=== PATIENT | female | born 1940 | race Caucasian/White ===

== ENCOUNTER 2017-01-29 21:20 | Inpatient (IN) | payer MEDICARE, OTHER ==
--- NOTE | ~2017-01-29 | HP ---
History And Physical [place] [id number] [facility] [place]. [address] NAME: LUIS HILL : 38 STATUS : ADM Alicia PAT#: [id number] AGE: 76 ADM/REG DATE : 01/29/17 MR#: [id number] REPORT SERV DATE: 01/30/17 DICTATED BY: DATE: REPORT STATUS : Draft TRANSCRIBED BY: MODL DATE: 01/30/17 DATE OF ADMISSION: 01/29/2017 The patient is [facility]. CHIEF COMPLAINT: Fall on Tuesday. HISTORY OF PRESENT ILLNESS: Ms. Hill is a 76-year-old white female who has past history of a stroke, but reportedly is fairly independent of activities of daily living, and fairly stable with ambulation. She fell on Tuesday morning. She is unable to provide a very clear history, but tells me that she was attempting to close the door because she recently heard of a stranger in their community and was fearful that he was going to come to get her at their house. In the process, she landed on her back and outstretched left hand, with some bruising. She reportedly was alright until Tuesday when she began to complain of some left-sided chest pain and left shoulder pain. The ER physician said that patient's family said she was also potentially complaining of shortness of breath at that time, although the patient herself denies. Her family has left the emergency department and is not available by phone. The patient's only complaint is of sinus congestion over the past several weeks, relieved with an antihistamine. She denies any cough or phlegm production. She denies any fever. She has not had any nausea, vomiting, or abdominal pain. She denies any changes in bowel habits or urinary habits. In the emergency department, CT chest, abdomen, and pelvis has been done with no acute abnormalities except for age indeterminate 10% to 15% possible insufficiency fracture of the superior T1 vertebra and prior changes of a CABG. Labs revealed leukocytosis with a white count of 22.2, but negative procalcitonin and negative lactic acid level. Urinalysis is negative and creatinine is 2.58 on last known baseline of 1.8 in 2010. Troponin is negative. EKG shows no ST or T-wave changes to suggest cardiac ischemia. The patient's only complaint at present is being tired. REVIEW OF SYSTEMS: Full 14-point review of systems is negative except as dictated in the history of present illness. PAST MEDICAL HISTORY: Includes: 1. Chronic kidney disease stage 3 with last known baseline creatinine 1.8. The patient sees a manager pe in [place] but is unable to recall the name. 2. History of coronary artery disease, status post 4-vessel CABG and aortic valve [place] [address] Chance. 3. Hypertension. 4. Hyperglycemia with past documented history of diabetes, not presently on any medications for such. 5. Hypothyroidism after surgical thyroidectomy for a substernal goiter in 2003 by History And Physical [address] [address] NAME: LUIS HILL : 38 STATUS : ADM Alicia PAT#: [id number] AGE: 76 ADM/REG DATE : 01/29/17 MR#: [id number] REPORT SERV DATE: 01/30/17 DICTATED BY: DATE: REPORT STATUS : Draft TRANSCRIBED BY: MODL DATE: 01/30/17 Ronnie Cadet. 6. Hiatal hernia. 7. Hyperlipidemia. 8. History of diastolic dysfunction - preserved ejection fraction by echocardiogram 11/25/2016. 9. History of COPD. 10.Prior history of CVA - details unknown. PAST SURGICAL HISTORY: Includes goiter, status post thyroidectomy in 2003 and CABG with aortic valve replacement in 2006. ALLERGIES: CODEINE WITH UNKNOWN REACTION. MEDICATIONS: Include: 1. Amlodipine/valsartan 5/320 mg p.o. daily. 2. Aspirin 81 mg p.o. daily. 3. Catapres 0.2 mg p.o. daily. 4. Lasix 20 mg p.o. at bedtime and 40 mg p.o. daily. 5. Levothyroxine 100 mcg p.o. daily. 6. Lopressor 100 mg p.o. twice a day. 7. Protonix 40 mg p.o. at bedtime. 8. MiraLAX one packet p.o. daily. 9. Pravastatin 20 mg p.o. daily. SOCIAL HISTORY: The patient is and lives with her . She spent much of our interview talking about stress related to having her [id number] recently move into their home. She is accusing him of stealing and creating other havoc in the home. She denies any history of tobacco, alcohol, or illicit substances. She used to work in [employer], but has been retired for quite sometime. FAMILY HISTORY: Reviewed and is noncontributory to this chief complaint. Primary care provider is Dr. Barr. PHYSICAL EXAMINATION: VITAL SIGNS: Blood pressure 145/77, pulse 84, respirations 21, oxygen saturation is 97% on 2 L nasal cannula, and temperature is 98.6. GENERAL: This is a frail-appearing white female, in no acute distress. Alert and oriented in two dimensions - knows who she is and where she is, is off on the date and year. She is also hard of hearing. HEENT: Normocephalic, atraumatic. Pupils are equally round and reactive to light. No scleral icterus or conjunctival pallor. No sinus tenderness to palpation or nasal drainage. Oropharynx is moist and pink with no posterior pharyngeal erythema or exudate. NECK: Supple. No jugular venous distention. No lymphadenopathy. No bruits. No thyromegaly. CARDIOVASCULAR: Regular rate and rhythm with no murmurs, rubs, or gallops. LUNGS: Clear to auscultation bilaterally with no wheezes, crackles, nor rhonchi. History And Physical [address] [address] NAME: LUIS HILL : 38 STATUS : ADM Alicia PAT#: [id number] AGE: 76 ADM/REG DATE : 01/29/17 MR#: [id number] REPORT SERV DATE: 01/30/17 DICTATED BY: DATE: REPORT STATUS : Draft TRANSCRIBED BY: MODYumiko DATE: 01/30/17 ABDOMEN: Soft, nontender, and nondistended with normoactive bowel sounds in four quadrants. No hepatosplenomegaly. EXTREMITIES: No cyanosis, clubbing, or edema. There is bruising of the left upper extremity, but patient has full range of motion of bilateral lower extremities and upper extremities. She is also observed to be ambulatory, slightly weak, but able to bear weight. SKIN: Normal skin turgor with no rash or breakdown aside from the bruising on the left hand as noted. NEUROLOGIC: Cranial nerves 2 through 12 were tested and are intact. Deep tendon reflexes 2+ bilateral brachioradialis and patellar tendons. Sensation intact to fine touch and temperature in all four limbs. Strength 5/5 in bilateral upper and lower extremities. LABORATORY DATA: White blood cell count 22.2, hemoglobin 12.8, hematocrit 39.1, and platelets 268. INR 1.2. BNP 170. Urinalysis is negative except for 9 hyaline casts. Lactate is 1.9. Procalcitonin 0.31. Sodium 142, potassium 4.8, chloride 106, bicarb 27, BUN 46, creatinine 2.58 on last known baseline of 1.8, glucose 182, calcium 9.9, magnesium 2.4, and troponin negative at 0.02. IMAGIN. Portable chest x-ray, 01/29/2017, showing small left effusion and minimal left basilar atelectasis by the radiologist read. 2. Chest CT without contrast, 01/29/2017, unremarkable CT chest with no thoracic adenopathy or active pulmonary disease. No effusion. Indeterminate age mild 10% to 15% possible insufficiency fracture at the superior T1 vertebra with stable mild-to- moderate thoracic kyphosis and prior CABG. 3. CT abdomen and pelvis, 01/29/2017, no acute abdominal or pelvic pathology. No solid organ contusion or laceration. Status post cholecystectomy. Moderate hiatal hernia. Diverticulosis but no diverticulitis. 4. EKG, no acute ischemic changes. IMPRESSION: 1. Leukocytosis. 2. Acute kidney injury with prior history of chronic kidney disease stage 3 and baseline creatinine 1.8 with last known creatinine from six years ago. 3. Fall with age indeterminate compression fracture of the thoracic spine. 4. Left basilar atelectasis and possible pleural effusion. 5. History of coronary artery disease with prior coronary artery bypass grafting and aortic valve replacement. 6. Hypertension. 7. Hyperglycemia - rule out diabetes mellitus type 2. 8. Hypothyroidism after surgical thyroidectomy. 9. Hiatal hernia. 10.Hyperlipidemia. 11.History of diastolic dysfunction, presently compensated. 12.History of chronic obstructive pulmonary disease. History And Physical [address] [address] NAME: LUIS HILL : 38 STATUS : ADM Alicia PAT#: [id number] AGE: 76 ADM/REG DATE : 01/29/17 MR#: [id number] REPORT SERV DATE: 01/30/17 DICTATED BY: DATE: REPORT STATUS : Draft TRANSCRIBED BY: ARIN DATE: 01/30/17 13.Past history of CVA. PLAN: 1. Observation admission to cardiac telemetry, attending Dr. Jeb Cho. 2. Records have been requested from the patient's primary care provider to compare to recent labs as there are no real recent labs here in the [facility]. It is unclear whether leukocytosis may be chronic, and whether the patient's baseline creatinine may be elevated further than when last known. Unfortunately, no family is present to tell us who the patient's specialists are and which manager pe she is currently seeing in order to obtain records from them as well. 3. The patient has no evidence of infectious symptoms on examination, no fever, negative procalcitonin and negative extensive imaging, we will defer on antibiotics for now and instead check a peripheral blood smear to evaluate for noninfectious causes of leukocytosis. 4. For the complaint of abdominal pain several days ago, check comprehensive metabolic panel and lipase to be thorough. 5. Check TSH and free T4. 6. Check hemoglobin A1c. 7. Repeat troponin in the morning. 8. CT brain is pending in the emergency department as the patient's baseline mental status is unclear. Per the emergency department physician, family does report that she has some mild confusion, but it is unclear how her current mentation compares to normal. 9. PT evaluation to assist with disposition planning. 10.Gentle IV fluids and hold nephrotoxic medications, trending creatinine. AYDIN/ARIN Jeb Cho M.D. / [id number] CC: Ling Barr MD
--- NOTE | ~2017-01-29 | DS ---
Discharge Summary [address] [address] [place]. [address] NAME: LUIS VENCES : 36 STATUS : DIS IN PAT#: [id number] AGE: 76 ADM/REG DATE : 01/31/17 MR#: [id number] REPORT SERV DATE: 02/09/17 DICTATED BY: MARIAJOSE BLAKE DATE: 02/04/17 REPORT STATUS : Draft TRANSCRIBED BY: ARIN DATE: 02/04/17 ADMISSION DATE: 01/31/2017 DISCHARGE DATE: 02/04/2017 DISCHARGE DIAGNOSES: 1. T1 compression fracture, status post kyphoplasty. 2. Acute kidney injury on chronic kidney disease stage 3. 3. Hypertension. 4. History of coronary artery disease, status post 4-vessel CABG. 5. History of aortic valve replacement in 2006. 6. History of hypothyroidism, status post thyroidectomy. 7. Chronic heart failure with preserved EF. 8. History of chronic obstructive pulmonary disease. 9. History of cerebrovascular accident with vascular dementia. DISCHARGE CONDITION: Stable. CONSULTATIONS: Interventional Radiology, Dr. Calvo. INVASIVE PROCEDURE: Kyphoplasty, no known complication. HISTORY OF PRESENT ILLNESS: For detailed HPI, please make reference to Dr. Cho's dictation on 01/29/2017. In brief, this is a 76-year-old female with medical history of CVA with vascular dementia, who presented to the hospital after a ground-level fall at home. It was noted that the patient fell on back and outstretched left hand with multiple bruises. On presentation to the ER, it was noted that the patient was also having significant shortness of breath, but no associated chest pain. A CT scan of the chest, abdomen, and pelvis was done, was noted to show age indeterminate 10% to 15% possible insufficiency fracture of the superior T1 vertebrae. LABORATORY DATA: On presentation showed leukocytosis of 22.2, but negative procalcitonin, negative lactic acid level. Urinalysis was also negative. Creatinine on presentation was 2.58, last known baseline was 1.8. An assessment of recurrent ground level fall, T1 vertebra compression fracture, and acute kidney injury on chronic kidney disease was made in the ER. The patient was admitted to the Hospitalist Service. HOSPITAL COURSE: 1. Acute kidney injury on chronic kidney disease. The patient's home dose of Lasix was held during this admission. The patient received gentle IV fluid hydration. The patient's creatinine trended down from 2.5 on presentation to 2.05 at discharge. The patient continues to make adequate urine. The patient was advised to restart Lasix at a lower dose of 40 mg p.o. daily and follow up with primary care physician. 2. COPD exacerbation. The patient had received IV methylprednisone with continuous DuoNebs. The patient's shortness of breath significantly improved. At the time of Discharge [address] [place]. [address] NAME: LUIS VENCES : 38 STATUS : DIS IN PAT#: [id number] AGE: 76 ADM/REG DATE : 01/31/17 MR#: [id number] REPORT SERV DATE: 02/09/17 DICTATED BY: MARIAJOSE BLAKE DATE: 02/04/17 REPORT STATUS : Draft TRANSCRIBED BY: ARIN DATE: 02/04/17 discharge, the patient had no further episodes of shortness of breath. The patient was saturating 100% on room air. 3. T1 compression fracture, status post kyphoplasty. The patient had an MRI that shows acute fracture of the T1 vertebrae amenable to kyphoplasty. Intervention Radiology was consulted and the patient underwent kyphoplasty without any significant complication. The patient was advised to continued followup with primary care physician. 4. Chronic diastolic heart failure. No evidence of acute decompensated heart failure during the course of this admission. The patient was advised to continue home dose medication. 5. History of coronary artery disease, status post 4-vessel CABG and aortic valve replacement. No evidence of chest pain during the course of this admission. The patient was advised to continue home dose medication. 6. Hypertension. The patient's blood pressure remained controlled throughout the course of this admission. DISCHARGE MEDICATIONS: 1. Levothyroxine 100 mcg p.o. daily. 2. Metoprolol 100 mg p.o. b.i.d. 3. Protonix 40 mg p.o. daily. 4. Pravastatin 20 mg p.o. daily. 5. Clonidine 0.2 mg p.o. daily. 6. Lasix 20 mg p.o. daily. 7. Exforge 5/320 mg p.o. daily. DISPOSITION: The patient's was present during the course of this admission. The patient's reported that he is able to take care of his at home. They both live independently and reports that he will be able to provide 24 hours care for the . At the time of discharge, the patient was instructed to continue follow up with primary care physician within one week of discharge. DISCHARGE ACTIVITY: As tolerated. DISCHARGE DIET: ADA 1000 calorie diet. Greater than 35 minutes was used to prepare this patient's discharge, reconcile medication, advise the patient on discharge plans and followup. DICTATED BY: MD PRETTY Clarke/ARIN Mariajose Blake MD Discharge Summary [address] [address] NAME: LUIS VENCES : 38 STATUS : DIS IN PAT#: [id number] AGE: 76 ADM/REG DATE : 01/31/17 MR#: [id number] REPORT SERV DATE: 02/09/17 DICTATED BY: MARIAJOSE BLAKE DATE: 02/04/17 REPORT STATUS : Draft TRANSCRIBED BY: ARIN DATE: 02/04/17 / [id number] CC: Mariajose Blake MD
[2017-01-29 20:55] LABS: BASOPHILS 0.1 %; BASOPHILS ABSOLUTE 0.03 10/3/uL (0.0-0.16); EOSINOPHILS 0 %; HEMATOCRIT 39.1 % (36.0-48.0); HEMOGLOBIN 12.8 g/dL (12.0-16.0); IMMATURE GRANULOCYTES 0.3 %; IMMATURE GRANULOCYTES ABSOLUTE 0.07 10/3/uL (0.0-0.11); LYMPHOCYTES 4.6 %; LYMPHOCYTES ABSOLUTE 1.03 10/3/uL (0.67-4.30); MEAN CORPUSCULAR HEMOGLOB 28.6 pg (26.0-34.0); MEAN CORPUSCULAR VOLUME 87.5 fL (80-100); MEAN PLATELET VOLUME 11.1 fL (9.2-13.0); MONOCYTES 5.3 %; MONOCYTES ABSOLUTE 1.17 10/3/uL (0.21-1.20); NEUTROPHILS 89.7 %; PLATELET COUNT 268 10/3/uL (150-400); RBC DISTRIBUTION WIDTH 13.6 % (12.0-16.0); RED CELL COUNT 4.47 10/6/uL (4.0-5.6)
[2017-01-29 20:58] LABS: ER CBC TAT 0 Hrs 07 Mins; MANUAL DIFF NO %; MEAN CORPUS HGB CONC 32.7 g/dL (32.0-36.0); WHITE BLOOD CELLS 22.2 10/3/uL (4.5-10.5)
[2017-01-29 21:04] LABS: INTERNATIONAL NORMAL RATI 1.2 UNITS (-); PROTIME (NOT ORD) 15.2 SEC (12.0-14.5)
[2017-01-29 21:05] LABS: PARTIAL THROMBO TIME 35.3 SEC (22.5-37.2)
[2017-01-29 21:12] LABS: CALCIUM, SERUM 9.9 MG/DL (8.5-10.4); CHEST PAIN PROFILE TAT 0 Hrs 21 Mins; CHLORIDE, SERUM 106 MMOL/L (96-112); CO2 (CARBON DIOXIDE) 27 MMOL/L (24-34); POTASSIUM, SERUM 4.8 MMOL/L (3.5-5.3); SODIUM, SERUM 142 MMOL/L (135-148); TROPONIN I <0.02 NG/ML (<0.05)
[2017-01-29 21:13] LABS: BUN (BLOOD UREA NITROGEN) 46 MG/DL (6-23); CREATININE 2.58 MG/DL (0.55-1.02); GFR AFRICAN AMERICAN 20 ML/MIN (>=60); GFR NON AFRICAN AMERICAN 17 ML/MIN (>=60); GLUCOSE, SERUM 182 MG/DL (60-99)
[~2017-01-29 21:20] MED LIST: ASAB PO; EXFORGE1 TA1 PO; L20 PO; LOP100 PO; NEXIUM40 PO; PRAVAC PO; SYN1 PO
[2017-01-29] MEDS ORDERED: PRAVAC PO (22:56)
[2017-01-29] MEDS ORDERED: LEVOTHYROXIN100 MCG PO (22:56)
[2017-01-29] MEDS ORDERED: LOP100 PO (22:56)
[2017-01-29] MEDS ORDERED: EXFORGE1 TA1 PO (22:57)
[2017-01-29] MEDS ORDERED: HALF81 PO (22:57)
[2017-01-29] MEDS ORDERED: L20 PO (22:57)
[2017-01-29] MEDS ORDERED: L40 PO (22:57)
[2017-01-29] MEDS ORDERED: MIRALAX POWDER1 PKT PO (22:58)
[2017-01-29] MEDS ORDERED: CAT2 PO (22:58)
[2017-01-29] MEDS ORDERED: PROTONIX PO (22:58)
[2017-01-29 23:32] LABS: ASCORBIC ACID (UR NOT ORDER) NEG (NEG); BILIRUBIN, URINE NEGATIVE (NEG); ER URINALYSIS TAT 0 Hrs 00 Mins; KETONE, URINE NEGATIVE (NEG); LEUKOCYTE ESTERASE(NOT OR NEG (NEG); NITRITE (URINE) NEG (NEG); WBC (NOT ORDERED) (RFLEX) < 1 (0-5)
[2017-01-29 23:50] LABS: LACTATE 1.9 MMOL/L (0.3-2.4)
[2017-01-30 00:23] LABS: PROCALCITONIN 0.31 ng/mL (<0.5)
[2017-01-30 06:30] LABS: BASOPHILS 0.1 %; BASOPHILS ABSOLUTE 0.02 10/3/uL (0.0-0.16); EOSINOPHILS 0.1 %; EOSINOPHILS ABSOLUTE 0.01 10/3/uL (0.0-0.53); HEMATOCRIT 38.6 % (36.0-48.0); HEMOGLOBIN 12.7 g/dL (12.0-16.0); IMMATURE GRANULOCYTES 0.2 %; IMMATURE GRANULOCYTES ABSOLUTE 0.03 10/3/uL (0.0-0.11); LYMPHOCYTES 12.4 %; LYMPHOCYTES ABSOLUTE 1.69 10/3/uL (0.67-4.30); MEAN CORPUS HGB CONC 32.9 g/dL (32.0-36.0); MEAN CORPUSCULAR HEMOGLOB 28.9 pg (26.0-34.0); MEAN CORPUSCULAR VOLUME 87.9 fL (80-100); MEAN PLATELET VOLUME 11.4 fL (9.2-13.0); MONOCYTES 6.8 %; MONOCYTES ABSOLUTE 0.93 10/3/uL (0.21-1.20); NEUTROPHILS 80.4 %; NEUTROPHILS ABSOLUTE 10.93 10/3/uL (2.02-8.40); PLATELET COUNT 249 10/3/uL (150-400); RBC DISTRIBUTION WIDTH 13.5 % (12.0-16.0); RED CELL COUNT 4.39 10/6/uL (4.0-5.6); WHITE BLOOD CELLS 13.6 10/3/uL (4.5-10.5)
[2017-01-30 06:31] LABS: MANUAL DIFF NO %
[2017-01-30 06:50] LABS: A/G RATIO 0.9 (0.7-1.9); ALBUMIN 3.8 G/DL (3.5-5.0); ALKALINE PHOSPHATASE 75 U/L (45-117); BUN (BLOOD UREA NITROGEN) 45 MG/DL (6-23); CALCIUM, SERUM 9.6 MG/DL (8.5-10.4); CHLORIDE, SERUM 109 MMOL/L (96-112); CO2 (CARBON DIOXIDE) 29 MMOL/L (24-34); CREATININE 2.44 MG/DL (0.55-1.02); FREE T4 1.97 NG/DL (0.76-1.46); GFR AFRICAN AMERICAN 21 ML/MIN (>=60); GFR NON AFRICAN AMERICAN 18 ML/MIN (>=60); GLOBULIN 4.3 G/DL (2.5-4.1); GLUCOSE, SERUM 155 MG/DL (60-99); POTASSIUM, SERUM 4.2 MMOL/L (3.5-5.3); SGOT(AST) 11 U/L (5-40); SGPT(ALT) 15 U/L (5-65); SODIUM, SERUM 141 MMOL/L (135-148); TOTAL BILIRUBIN 0.8 MG/DL (0-1.2); TOTAL PROTEIN 8.1 G/DL (6.0-8.5); TROPONIN I <0.02 NG/ML (<0.05)
[2017-01-30 07:39] LABS: PROCALCITONIN 0.74 ng/mL (<0.5)
[2017-01-31 05:31] LABS: BASOPHILS 0.2 %; BASOPHILS ABSOLUTE 0.02 10/3/uL (0.0-0.16); EOSINOPHILS ABSOLUTE 0.13 10/3/uL (0.0-0.53); HEMATOCRIT 37.9 % (36.0-48.0); HEMOGLOBIN 11.9 g/dL (12.0-16.0); IMMATURE GRANULOCYTES 0.2 %; IMMATURE GRANULOCYTES ABSOLUTE 0.03 10/3/uL (0.0-0.11); LYMPHOCYTES 12.5 %; LYMPHOCYTES ABSOLUTE 1.57 10/3/uL (0.67-4.30); MEAN CORPUS HGB CONC 31.4 g/dL (32.0-36.0); MEAN CORPUSCULAR HEMOGLOB 28.3 pg (26.0-34.0); MEAN PLATELET VOLUME 11.1 fL (9.2-13.0); MONOCYTES 5.7 %; MONOCYTES ABSOLUTE 0.72 10/3/uL (0.21-1.20); NEUTROPHILS 80.4 %; NEUTROPHILS ABSOLUTE 10.11 10/3/uL (2.02-8.40); PLATELET COUNT 236 10/3/uL (150-400); RBC DISTRIBUTION WIDTH 13.7 % (12.0-16.0); RED CELL COUNT 4.21 10/6/uL (4.0-5.6); WHITE BLOOD CELLS 12.6 10/3/uL (4.5-10.5)
[2017-01-31 05:37] LABS: MANUAL DIFF NO %
[2017-01-31 05:50] LABS: CALCIUM, SERUM 9.8 MG/DL (8.5-10.4); CHLORIDE, SERUM 109 MMOL/L (96-112); CO2 (CARBON DIOXIDE) 28 MMOL/L (24-34); CREATININE 2.44 MG/DL (0.55-1.02); GFR AFRICAN AMERICAN 21 ML/MIN (>=60); GFR NON AFRICAN AMERICAN 18 ML/MIN (>=60); GLUCOSE, SERUM 147 MG/DL (60-99); PHOSPHORUS, SERUM 4.1 MG/DL (2.5-4.5); SODIUM, SERUM 142 MMOL/L (135-148)
[2017-01-31 05:51] LABS: BUN (BLOOD UREA NITROGEN) 53 MG/DL (6-23)
[2017-01-31 11:15] LABS: BE (BASE EXCESS) -3.4 MEQ/L (0 +/- 2.5); INSTRUMENT SERIAL # 35151; PCO2 (CO2 TENSION) 42 MMHG (35-45); PO2 (O2 TENSION) 122 MMHG (79-93); pH 7.34 (7.37-7.43)
[2017-01-31 11:16] LABS: ALLENS TEST Pos; CARBOXYHEMOGLOBIN 0.3 % (0-3); DEVICE NC; HCO3 (ACTUAL BICARBONATE) 22.2 MEQ/L (23-27); METHEMOGLOBIN 0.3 % (0-3); O2 CONTENT 15.3 VOL% (18-24); SAMPLE Arterial
[2017-01-31 15:13] LABS: ALLENS TEST Pos; BE (BASE EXCESS) -4.1 MEQ/L (0 +/- 2.5); CARBOXYHEMOGLOBIN 0.2 % (0-3); DEVICE NC; HEMOBLOGIN CONTENT 11.4 G/DL (12-16); INSTRUMENT SERIAL # 35151; METHEMOGLOBIN 0.2 % (0-3); O2 CONTENT 15.6 VOL% (18-24); OPERATOR ID 35798; PCO2 (CO2 TENSION) 45 MMHG (35-45); PO2 (O2 TENSION) 96 MMHG (79-93); SAMPLE Arterial; pH 7.31 (7.37-7.43)
[2017-02-01 04:38] LABS: BE (BASE EXCESS) -2.5 MEQ/L (0 +/- 2.5); CARBOXYHEMOGLOBIN 1.2 % (0-3); DEVICE NC; HCO3 (ACTUAL BICARBONATE) 21.8 MEQ/L (23-27); HEMOBLOGIN CONTENT 11.8 G/DL (12-16); INSTRUMENT SERIAL # 8087; METHEMOGLOBIN 0.3 % (0-3); O2 CONTENT 15.8 VOL% (18-24); OPERATOR ID 17537; PCO2 (CO2 TENSION) 36 MMHG (35-45); PO2 (O2 TENSION) 85 MMHG (79-93); SAMPLE Arterial
[2017-02-01 04:46] LABS: BASOPHILS 0 %; EOSINOPHILS 0 %; HEMATOCRIT 33.4 % (36.0-48.0); HEMOGLOBIN 10.7 g/dL (12.0-16.0); IMMATURE GRANULOCYTES 0.3 %; IMMATURE GRANULOCYTES ABSOLUTE 0.02 10/3/uL (0.0-0.11); LYMPHOCYTES 6.6 %; LYMPHOCYTES ABSOLUTE 0.52 10/3/uL (0.67-4.30); MANUAL DIFF NO %; MEAN CORPUSCULAR HEMOGLOB 28.5 pg (26.0-34.0); MEAN CORPUSCULAR VOLUME 89.1 fL (80-100); MEAN PLATELET VOLUME 10.8 fL (9.2-13.0); MONOCYTES 0.4 %; MONOCYTES ABSOLUTE 0.03 10/3/uL (0.21-1.20); NEUTROPHILS 92.7 %; NEUTROPHILS ABSOLUTE 7.32 10/3/uL (2.02-8.40); PLATELET COUNT 191 10/3/uL (150-400); RBC DISTRIBUTION WIDTH 13.3 % (12.0-16.0); RED CELL COUNT 3.75 10/6/uL (4.0-5.6); WHITE BLOOD CELLS 7.9 10/3/uL (4.5-10.5)
[2017-02-01 05:08] LABS: BUN (BLOOD UREA NITROGEN) 54 MG/DL (6-23); CALCIUM, SERUM 9.2 MG/DL (8.5-10.4); CHLORIDE, SERUM 112 MMOL/L (96-112); CO2 (CARBON DIOXIDE) 24 MMOL/L (24-34); CREATININE 2.35 MG/DL (0.55-1.02); GFR AFRICAN AMERICAN 22 ML/MIN (>=60); GFR NON AFRICAN AMERICAN 19 ML/MIN (>=60); PHOSPHORUS, SERUM 3.2 MG/DL (2.5-4.5); POTASSIUM, SERUM 4.9 MMOL/L (3.5-5.3); SODIUM, SERUM 144 MMOL/L (135-148); TROPONIN I <0.02 NG/ML (<0.05)
[2017-02-01 05:10] LABS: GLUCOSE, SERUM 204 MG/DL (60-99); ULTRASENSITIVE TSH 0.171 MCIU/ML (0.358-3.740)
[2017-02-02 04:38] LABS: BASOPHILS 0 %; EOSINOPHILS 0 %; HEMATOCRIT 35.8 % (36.0-48.0); HEMOGLOBIN 11.6 g/dL (12.0-16.0); IMMATURE GRANULOCYTES 0.2 %; IMMATURE GRANULOCYTES ABSOLUTE 0.03 10/3/uL (0.0-0.11); LYMPHOCYTES ABSOLUTE 1.26 10/3/uL (0.67-4.30); MEAN CORPUS HGB CONC 32.4 g/dL (32.0-36.0); MEAN CORPUSCULAR HEMOGLOB 28.4 pg (26.0-34.0); MEAN CORPUSCULAR VOLUME 87.5 fL (80-100); MEAN PLATELET VOLUME 10.8 fL (9.2-13.0); MONOCYTES 5.5 %; NEUTROPHILS 84.3 %; NEUTROPHILS ABSOLUTE 10.67 10/3/uL (2.02-8.40); RBC DISTRIBUTION WIDTH 13.4 % (12.0-16.0); RED CELL COUNT 4.09 10/6/uL (4.0-5.6)
[2017-02-02 04:40] LABS: MANUAL DIFF NO %; PLATELET COUNT 249 10/3/uL (150-400); WHITE BLOOD CELLS 12.7 10/3/uL (4.5-10.5)
[2017-02-02 04:50] LABS: ALBUMIN 3.3 G/DL (3.5-5.0); CALCIUM, SERUM 9.6 MG/DL (8.5-10.4); CHLORIDE, SERUM 108 MMOL/L (96-112); CO2 (CARBON DIOXIDE) 26 MMOL/L (24-34); CREATININE 2.27 MG/DL (0.55-1.02); GFR AFRICAN AMERICAN 23 ML/MIN (>=60); GFR NON AFRICAN AMERICAN 20 ML/MIN (>=60); POTASSIUM, SERUM 4.6 MMOL/L (3.5-5.3); SODIUM, SERUM 140 MMOL/L (135-148)
[2017-02-02 04:51] LABS: BUN (BLOOD UREA NITROGEN) 59 MG/DL (6-23); GLUCOSE, SERUM 157 MG/DL (60-99); PHOSPHORUS, SERUM 2.2 MG/DL (2.5-4.5)
[2017-02-02 05:01] LABS: PLATELET ESTIMATE ADQ (ADEQUATE); RBC MORPHOLOGY NORM (NORMAL)
[2017-02-03 08:38] LABS: BASOPHILS 0 %; EOSINOPHILS 0 %; HEMATOCRIT 38.3 % (36.0-48.0); HEMOGLOBIN 12.7 g/dL (12.0-16.0); IMMATURE GRANULOCYTES 0.5 %; IMMATURE GRANULOCYTES ABSOLUTE 0.05 10/3/uL (0.0-0.11); LYMPHOCYTES 12.1 %; LYMPHOCYTES ABSOLUTE 1.26 10/3/uL (0.67-4.30); MEAN CORPUS HGB CONC 33.2 g/dL (32.0-36.0); MEAN CORPUSCULAR HEMOGLOB 28.7 pg (26.0-34.0); MEAN CORPUSCULAR VOLUME 86.7 fL (80-100); MONOCYTES ABSOLUTE 0.83 10/3/uL (0.21-1.20); NEUTROPHILS 79.4 %; PLATELET COUNT 261 10/3/uL (150-400); RBC DISTRIBUTION WIDTH 13.6 % (12.0-16.0); RED CELL COUNT 4.42 10/6/uL (4.0-5.6); WHITE BLOOD CELLS 10.4 10/3/uL (4.5-10.5)
[2017-02-03 08:42] LABS: MANUAL DIFF NO %
[2017-02-03 13:53] LABS: BUN (BLOOD UREA NITROGEN) 55 MG/DL (6-23); CALCIUM, SERUM 9.4 MG/DL (8.5-10.4); CHLORIDE, SERUM 109 MMOL/L (96-112); CO2 (CARBON DIOXIDE) 25 MMOL/L (24-34); CREATININE 2.17 MG/DL (0.55-1.02); GFR AFRICAN AMERICAN 24 ML/MIN (>=60); GFR NON AFRICAN AMERICAN 21 ML/MIN (>=60); GLUCOSE, SERUM 221 MG/DL (60-99); PHOSPHORUS, SERUM 2.5 MG/DL (2.5-4.5); SODIUM, SERUM 139 MMOL/L (135-148)
[2017-02-04 07:12] LABS: BUN (BLOOD UREA NITROGEN) 53 MG/DL (6-23); CALCIUM, SERUM 9.6 MG/DL (8.5-10.4); CHLORIDE, SERUM 113 MMOL/L (96-112); CO2 (CARBON DIOXIDE) 24 MMOL/L (24-34); CREATININE 2.07 MG/DL (0.55-1.02); GFR AFRICAN AMERICAN 26 ML/MIN (>=60); GFR NON AFRICAN AMERICAN 22 ML/MIN (>=60); SODIUM, SERUM 143 MMOL/L (135-148)
[2017-02-04 07:14] LABS: GLUCOSE, SERUM 136 MG/DL (60-99)
== END 2017-02-04 10:09 | disposition home or self-care (01) | DRG 516 ==
LOC: ER 21:20 → 7NO 23:59
PROVIDERS: Hospitalist; Nurse Practitioner
PROC: 0PS43ZZ Reposition Thoracic Vertebra, Percutaneous Approach (ICD-10-PCS; principal; 2017-02-03)
PROC: 0PU43JZ Supplement Thoracic Vertebra with Synthetic Substitute, Percutaneous Approach (ICD-10-PCS; 2017-02-03)
DX: S22.009A Unspecified fracture of unspecified thoracic vertebra, initial encounter for closed fracture (principal); S22.42XA Multiple fractures of ribs, left side, initial encounter for closed fracture; N17.9 Acute kidney failure, unspecified; I50.32 Chronic diastolic (congestive) heart failure; F01.50 Vascular dementia, unspecified severity, without behavioral disturbance, psychotic disturbance, mood disturbance, and anxiety; J44.1 Chronic obstructive pulmonary disease with (acute) exacerbation; I13.0 Hypertensive heart and chronic kidney disease with heart failure and stage 1 through stage 4 chronic kidney disease, or unspecified chronic kidney disease; N18.3 Chronic kidney disease, stage 3 (moderate); Z90.49 Acquired absence of other specified parts of digestive tract; K44.9 Diaphragmatic hernia without obstruction or gangrene; K57.90 Diverticulosis of intestine, part unspecified, without perforation or abscess without bleeding; W18.30XA Fall on same level, unspecified, initial encounter; Z91.81 History of falling; Y92.009 Unspecified place in unspecified non-institutional (private) residence as the place of occurrence of the external cause; Z95.1 Presence of aortocoronary bypass graft; E78.5 Hyperlipidemia, unspecified; E03.9 Hypothyroidism, unspecified; I69.319 Unspecified symptoms and signs involving cognitive functions following cerebral infarction
CPT/HCPCS: 22513; 36600; 70450; 71010; 71100-LT; 71250; 72146-52; 73030-LT; 73110-LT; 74176; 76775; 80048; 80053; 80069; 81001; 82805; 82962; 83036; 83605; 83690; 83735; 83880; 84100; 84145; 84439; 84443; 84484; 85025; 85610; 85730; 87040; 93005; 94640; 97110-GP; 97116-GP; 97161-GP; 99152; 99153; 99285; A9270-GY; G8978-CM-GP; G8979-CL-GP; J0360; J2250; J2920; J3010; J3486; Q9967